=== PATIENT | female | born 1985 | race Caucasian/White ===

== ENCOUNTER 2017-12-24 20:38 | Emergency (ER) | payer BC ==
[~2017-12-24] VITALS: Ht 170.2 cm; Wt 77.3 kg
[2017-12-24 20:41] VITALS: BP 126/83; TEMP 98.8
[2017-12-24 21:20] LABS: BASO % 0.2 % (0.0-2.0); EOS # 0.2 (0.0-0.7); EOS % 1.5 % (0-4.0); GRAN # 6.4 (1.4-6.5); GRAN % 57.2 % (42.2-75.2); HEMOGLOBIN 12.2 g/dl (12.5-16.0); LYMPH # 3.8 (1.2-3.4); LYMPH % 34.2 % (20.0-51.0); MEAN CELL VOLUME 87 fl (80.0-100.0); MEAN CORPUSCULAR HEMOGLOBIN 29 pg (27.0-31.0); MEAN CORPUSCULAR HGB CONC 34 g/dl (33.0-37.0); MEAN PLATELET VOLUME 10.4 fl (7.4-10.4); MONO # 0.7 (0.1-0.6); MONO % 6.6 % (1.7-9.3); PLATELET COUNT 242 K/mm3 (130-400); REDCELL DISTRIBUTION WIDTH-CV 13.1 % (11.5-14.5)
[2017-12-24 21:23] LABS: HEMATOCRIT 36.4 % (37.0-47.0)
[2017-12-24 21:32] LABS: ALBUMIN 4.5 gm/dL (3.5-5.0); BILIRUBIN,TOTAL 0.2 mg/dL (0.0-1.0); CALCIUM 9.3 mg/dL (8.4-10.2); CREATININE, serum 0.64 mg/dL (0.52-1.25); TOTAL PROTEIN 8.8 gm/dL (6.4-8.2)
[2017-12-24 23:10] LABS: COLLECTION METHOD CLEAN CATCH
[2017-12-24 23:20] LABS: PH 6 (5-8); SQUAMOUS EPITHELIAL None Seen /hpf; URINE APPEARANCE Clear; URINE BACTERIA None Seen /hpf; URINE BILIRUBIN Negative (NEGATIVE); URINE BLOOD 3+ (NEGATIVE); URINE COLOR Yellow; URINE GLUCOSE Negative (NEGATIVE); URINE KETONE Negative (NEGATIVE); URINE LEUKOCYTE ESTERASE Negative (NEGATIVE); URINE NITRATE Negative (NEGATIVE); URINE PROTEIN(semi-quant) Negative (NEGATIVE); URINE UROBILINOGEN Negative (NEGATIVE)
[2017-12-24 23:30] VITALS: PULSE 64
== END 2017-12-24 23:33 | disposition home or self-care (01) ==
LOC: COL.ER 20:38
PROVIDERS: Emergency Medicine; Nurse Practitioner
DX: O03.9 Complete or unspecified spontaneous abortion without complication (principal); Z3A.08 8 weeks gestation of pregnancy

== ENCOUNTER 2020-01-27 09:14 | Emergency (ER) | payer BC ==
[~2020-01-27] VITALS: Ht 170.2 cm; Wt 77.3 kg
[2020-01-27 09:22] VITALS: TEMP 98.4
[2020-01-27] MEDS ORDERED: MULTI VITAMINS1 TAB PO (09:27)
[2020-01-27] MEDS ORDERED: VITAMIN D 1001000 IU PO (09:28)
[2020-01-27] MEDS ORDERED: MASON NATURAL1200 MG PO (09:28)
[2020-01-27] MEDS ORDERED: PROBIOTIC BLEN1 EACH PO (09:28)
[2020-01-27] MEDS ORDERED: MELATONIN1 MG PO (09:29)
[2020-01-27 10:10] LABS: COLLECTION METHOD CLEAN CATCH
[2020-01-27 10:14] LABS: BASO % 0.2 % (0.0-2.0); EOS # 0.1 (0.0-0.7); EOS % 1.7 % (0-4.0); GRAN # 5.3 (1.4-6.5); HEMATOCRIT 37.2 % (37.0-47.0); LYMPH # 2.2 (1.2-3.4); LYMPH % 25.9 % (20.0-51.0); MEAN CELL VOLUME 89 fl (80.0-100.0); MEAN CORPUSCULAR HEMOGLOBIN 29 pg (27.0-31.0); MEAN CORPUSCULAR HGB CONC 32 g/dl (33.0-37.0); MEAN PLATELET VOLUME 10.4 fl (7.4-10.4); MONO # 0.7 (0.1-0.6); MONO % 7.8 % (1.7-9.3); PLATELET COUNT 210 K/mm3 (130-400); RED BLOOD COUNT 4.19 M/mm3 (4.10-5.30); REDCELL DISTRIBUTION WIDTH-CV 12.2 % (11.5-14.5)
[2020-01-27 10:18] LABS: MUCOUS Present /lpf; PH 5 (5-8); SQUAMOUS EPITHELIAL None Seen /hpf; URINE APPEARANCE Clear; URINE BACTERIA Rare /hpf; URINE BILIRUBIN Negative (NEGATIVE); URINE BLOOD Negative (NEGATIVE); URINE COLOR Straw; URINE GLUCOSE Negative (NEGATIVE); URINE KETONE Negative (NEGATIVE); URINE LEUKOCYTE ESTERASE Negative (NEGATIVE); URINE NITRATE Negative (NEGATIVE); URINE PROTEIN(semi-quant) Negative (NEGATIVE); URINE RBC 0-2 /hpf; URINE UROBILINOGEN Negative (NEGATIVE)
[2020-01-27 10:33] LABS: ALANINE AMINOTRANSFERASE 13 U/L (4-34); ALBUMIN 4.5 gm/dL (3.5-5.0); ALKALINE PHOSPHATASE 65 U/L (50-136); ANION GAP 9 mmol/L (7-16); AST,SGOT 22 U/L (15-37); BILIRUBIN,TOTAL 0.6 mg/dL (0.0-1.0); BLOOD UREA NITROGEN 14 mg/dL (7-17); CALCIUM 9.2 mg/dL (8.4-10.2); CARBON DIOXIDE 23 mmol/L (22-30); CHLORIDE 106 mmol/L (98-107); CREATININE, serum 0.66 (0.52-1.25); GLUCOSE 97 mg/dL (74-106); LIPASE 43 U/L (23-300); SODIUM 137 mmol/L (137-145); TOTAL PROTEIN 8.1 gm/dL (6.4-8.2)
[2020-01-27 10:35] LABS: C-REACTIVE PROTEIN < 0.5 mg/dL (0.0-0.9)
[2020-01-27] MEDS ORDERED: MIRALAX510G PO (10:45)
[2020-01-27 10:54] VITALS: BP 111/72; PULSE 61
== END 2020-01-27 10:59 | disposition home or self-care (01) ==
LOC: COL.ER 09:14
PROVIDERS: Emergency Medicine
DX: K92.1 Melena (principal)
CPT/HCPCS: J7030

== ENCOUNTER 2021-07-19 11:27 | Emergency (ER) | payer BC ==
[~2021-07-19] VITALS: Ht 170.2 cm; Wt 79.5 kg
[~2021-07-19 11:27] MED LIST: MASON NATURAL1200 MG PO; MELATONIN1 MG PO; MIRALAX510G PO; MULTI VITAMINS1 TAB PO; PROBIOTIC BLEN1 EACH PO; VITAMIN D 1001000 IU PO
[2021-07-19 11:59] VITALS: BP 134/77; TEMP 98.4
[2021-07-19 15:12] LABS: BASO % 0.3 % (0.0-2.0); EOS # 0.2 K/mm3 (0.0-0.7); EOS % 1.3 % (0-4.0); GRAN # 7.6 K/mm3 (1.4-6.5); HEMATOCRIT 39.4 % (37.0-47.0); HEMOGLOBIN 13.5 g/dl (12.5-16.0); LYMPH # 3.1 K/mm3 (1.2-3.4); LYMPH % 26.5 % (20.0-51.0); MEAN CELL VOLUME 85 fl (80.0-100.0); MEAN CORPUSCULAR HEMOGLOBIN 29 pg (27.0-31.0); MEAN CORPUSCULAR HGB CONC 34 g/dl (33.0-37.0); MEAN PLATELET VOLUME 9.7 fl (7.4-10.4); MONO # 0.8 K/mm3 (0.1-0.6); MONO % 6.6 % (1.7-9.3); PLATELET COUNT 305 K/mm3 (130-400); RED BLOOD COUNT 4.62 M/mm3 (4.10-5.30); REDCELL DISTRIBUTION WIDTH-CV 12.6 % (11.5-14.5)
[2021-07-19 15:25] LABS: ALANINE AMINOTRANSFERASE 28 U/L (0-55); ALBUMIN 4.1 gm/dL (3.5-5.0); ALKALINE PHOSPHATASE 65 U/L (40-150); ANION GAP 10 mmol/L (7-16); AST,SGOT 22 U/L (5-34); BILIRUBIN,TOTAL 0.7 mg/dL (0.2-1.2); BLOOD UREA NITROGEN 7 mg/dL (7-19); CALCIUM 9.4 mg/dL (8.4-10.2); CARBON DIOXIDE 21 mmol/L (22-29); CHLORIDE 106 mmol/L (98-107); CREATININE, serum 0.84 mg/dL (0.57-1.11); GLUCOSE 117 mg/dL (70-99); POTASSIUM 3.6 mmol/L (3.5-4.5); SODIUM 137 mmol/L (136-145)
[2021-07-19 15:32] LABS: TROPONIN-I < 0.010 ng/mL (0.00-0.033)
[2021-07-19 16:15] VITALS: PULSE 67
== END 2021-07-19 16:15 | disposition home or self-care (01) ==
LOC: COL.ER 11:27
PROVIDERS: Personal Emergency Response Attendant
DX: R00.2 Palpitations (principal)